=== PATIENT | female | born 1935 | race Caucasian/White ===

== ENCOUNTER 2020-12-27 10:19 | Inpatient (IN) ==
[2020-12-27] MEDS: Ondansetron ODT 4 MG TAB.RAPDIS SL PRN (19:39)
[2020-12-27] MEDS: Lactobacillus 1 EACH CAP.SPRINK PO SCH (19:39)
[2020-12-27] MEDS: Sennosides/Docusate Sodium TABLET PO SCH (19:40)
[2020-12-27] MEDS: *HR* OxyCODONE Immed Rel 5 MG TABLET PO PRN (19:40)
[2020-12-28 04:52] LABS: Basophils % 0.7 %; Eosinophils # 0.4 K/mcL (0.0-0.6); Hematocrit 31.1 % (35.3-44.9); Hemoglobin 9.8 g/dL (11.5-15.4); Immature Granulocytes % 0.4 % (0-4); Lymphocytes % 17.3 %; Mean Corpuscular HGB Conc 31.5 g/dL (31.6-35.5); Mean Corpuscular Hemoglobin 28.7 pg (28.0-33.3); Mean Corpuscular Volume 90.9 fL (83.0-100.0); Monocytes # 0.6 K/mcL (0.0-1.3); Monocytes % 11.5 %; Neutrophils # 3.4 K/mcL (1.6-8.9); Platelet Count 182 K/mcL (140-400); Red Blood Count 3.42 M/mcL (3.82-4.97); Segmented Neutrophils % 62.1 %; White Blood Count 5.5 K/mcL (4.3-11.1)
[2020-12-28 05:08] LABS: Alanine Aminotransferase 11 Units/L (7-52); Albumin 3.3 g/dL (3.5-5.7); Albumin/Globulin Ratio 1.5 (1.1-2.2); Alkaline Phosphatase 58 Units/L (34-104); Aspartate Amino Transferase 25 Units/L (13-39); BUN/Creatinine Ratio 24 (6-26); Bilirubin,Total 0.6 mg/dL (0.3-1.0); Blood Urea Nitrogen 18 mg/dL (8-23); Calcium 9.1 mg/dL (8.6-10.3); Carbon Dioxide 29 mEq/L (23-29); Chloride 105 mEq/L (98-107); Globulin 2.2 g/dL (2.4-3.5); Glucose 103 mg/dL (70-105); Osmolality,Calculated 288 (280-300); Potassium 4.2 mEq/L (3.5-5.1); Sodium 138 mEq/L (136-145); Total Protein 5.5 g/dL (6.4-8.9); eGFR For African Americans > 60 (> 60); eGFR For Non-African Americans > 60 (> 60)
[2020-12-28] MEDS: *HR* OxyCODONE Immed Rel 5 MG TABLET PO PRN ×3 (06:39→20:18)
[2020-12-28] MEDS: Sennosides/Docusate Sodium TABLET PO SCH ×2 (07:54→20:18)
[2020-12-28] MEDS: Cyanocobalamin (B-12) 1,000 MCG TABLET PO SCH (07:54)
[2020-12-28] MEDS: Valsartan 160 MG TABLET PO SCH (07:54)
[2020-12-28] MEDS: Vitamin E 200 UNIT (90MG) CAPSULE PO SCH (07:54)
[2020-12-28] MEDS: FLUoxetine 20 MG CAPSULE PO SCH (07:54)
[2020-12-28] MEDS: Cholecalciferol (D-3) 1,000 UNIT (25MCG) TABLET PO SCH (07:54)
[2020-12-28] MEDS: Multivit/Ca/Min/Fe/FA 1 TAB TABLET PO SCH (07:54)
[2020-12-28] MEDS: Lactobacillus 1 EACH CAP.SPRINK PO SCH ×2 (07:54→20:18)
[2020-12-28] MEDS: estradioL 0.5 MG TABLET PO SCH (18:23)
[2020-12-28] MEDS: *HR* Rivaroxaban 10 MG TABLET PO SCH (18:25)
[2020-12-28] MEDS: Ondansetron ODT 4 MG TAB.RAPDIS SL PRN (20:18)
[2020-12-29] MEDS: *HR* OxyCODONE Immed Rel 5 MG TABLET PO PRN ×2 (06:24→14:28)
[2020-12-29] MEDS: Sennosides/Docusate Sodium TABLET PO SCH ×2 (08:33→20:24)
[2020-12-29] MEDS: FLUoxetine 20 MG CAPSULE PO SCH (08:33)
[2020-12-29] MEDS: Vitamin E 200 UNIT (90MG) CAPSULE PO SCH (08:33)
[2020-12-29] MEDS: Multivit/Ca/Min/Fe/FA 1 TAB TABLET PO SCH (08:34)
[2020-12-29] MEDS: Valsartan 160 MG TABLET PO SCH (08:34)
[2020-12-29] MEDS: Cholecalciferol (D-3) 1,000 UNIT (25MCG) TABLET PO SCH (08:34)
[2020-12-29] MEDS: Lactobacillus 1 EACH CAP.SPRINK PO SCH ×2 (08:34→20:24)
[2020-12-29] MEDS: estradioL 0.5 MG TABLET PO SCH (08:34)
[2020-12-29] MEDS: Cyanocobalamin (B-12) 1,000 MCG TABLET PO SCH (08:34)
[2020-12-29] MEDS: *HR* Rivaroxaban 10 MG TABLET PO SCH (17:29)
[2020-12-29 21:03] LABS: Bilirubin,Urine Negative (Negative); Blood,Urine Moderate (Negative); Clarity,Urine Cloudy (Clear); Color,Urine Yellow (Yellow); Glucose,Urine (UA) Normal (Normal); Ketones,Urine Negative (Negative); Leukocyte Esterase,Urine Large (Negative); Nitrite,Urine Negative (Negative); PH,Urine 6.5 pH Units (5.0-8.0); Protein,Urine 100 mg/dL (Neg-Trace); Specific Gravity,Urine 1.025 (1.010-1.025); Urobilinogen,Urine Normal (Normal)
[2020-12-29 21:06] LABS: Bacteria,Urine Many per hpf (None-Few); RBC,Urine 0-3 per hpf (0-3); Squamous Epithelial Cell,Urine Few per hpf (None-Few); WBC,Urine 0-3 per hpf (0-3)
[2020-12-30] MEDS: Ondansetron ODT 4 MG TAB.RAPDIS SL PRN (01:11)
[2020-12-30] MEDS: Acetaminophen 325 MG TABLET PO PRN (08:20)
[2020-12-30] MEDS: Multivit/Ca/Min/Fe/FA 1 TAB TABLET PO SCH (08:40)
[2020-12-30] MEDS: Cyanocobalamin (B-12) 1,000 MCG TABLET PO SCH (08:40)
[2020-12-30] MEDS: Valsartan 160 MG TABLET PO SCH (08:40)
[2020-12-30] MEDS: Sennosides/Docusate Sodium TABLET PO SCH ×2 (08:40→20:47)
[2020-12-30] MEDS: Vitamin E 200 UNIT (90MG) CAPSULE PO SCH (08:40)
[2020-12-30] MEDS: Lactobacillus 1 EACH CAP.SPRINK PO SCH ×2 (08:40→20:47)
[2020-12-30] MEDS: Cholecalciferol (D-3) 1,000 UNIT (25MCG) TABLET PO SCH (08:40)
[2020-12-30] MEDS: FLUoxetine 20 MG CAPSULE PO SCH (08:40)
[2020-12-30] MEDS: estradioL 0.5 MG TABLET PO SCH (08:40)
[2020-12-30] MEDS: *HR* Rivaroxaban 10 MG TABLET PO SCH (17:57)
[2020-12-30] MEDS: *HR* OxyCODONE Immed Rel 5 MG TABLET PO PRN (20:47)
[2020-12-31] MEDS: *HR* OxyCODONE Immed Rel 5 MG TABLET PO PRN ×2 (03:19→23:33)
[2020-12-31] MEDS: Valsartan 160 MG TABLET PO SCH (09:08)
[2020-12-31] MEDS: Cholecalciferol (D-3) 1,000 UNIT (25MCG) TABLET PO SCH (09:08)
[2020-12-31] MEDS: Vitamin E 200 UNIT (90MG) CAPSULE PO SCH (09:08)
[2020-12-31] MEDS: Multivit/Ca/Min/Fe/FA 1 TAB TABLET PO SCH (09:08)
[2020-12-31] MEDS: estradioL 0.5 MG TABLET PO SCH (09:09)
[2020-12-31] MEDS: Cyanocobalamin (B-12) 1,000 MCG TABLET PO SCH (09:09)
[2020-12-31] MEDS: FLUoxetine 20 MG CAPSULE PO SCH (09:09)
[2020-12-31] MEDS: Sennosides/Docusate Sodium TABLET PO SCH ×2 (09:09→19:44)
[2020-12-31] MEDS: Lactobacillus 1 EACH CAP.SPRINK PO SCH ×2 (09:09→19:45)
[2020-12-31] MEDS: *HR* Rivaroxaban 10 MG TABLET PO SCH (16:15)
[2020-12-31] MEDS: Acetaminophen 325 MG TABLET PO PRN (22:41)
[2021-01-01] MEDS: Vitamin E 200 UNIT (90MG) CAPSULE PO SCH (09:27)
[2021-01-01] MEDS: Multivit/Ca/Min/Fe/FA 1 TAB TABLET PO SCH (09:27)
[2021-01-01] MEDS: Lactobacillus 1 EACH CAP.SPRINK PO SCH ×2 (09:27→19:36)
[2021-01-01] MEDS: Valsartan 160 MG TABLET PO SCH (09:27)
[2021-01-01] MEDS: Cholecalciferol (D-3) 1,000 UNIT (25MCG) TABLET PO SCH (11:54)
[2021-01-01] MEDS: Cyanocobalamin (B-12) 1,000 MCG TABLET PO SCH (11:54)
[2021-01-01] MEDS: FLUoxetine 20 MG CAPSULE PO SCH (11:54)
[2021-01-01] MEDS: estradioL 0.5 MG TABLET PO SCH (11:54)
[2021-01-01] MEDS: Sennosides/Docusate Sodium TABLET PO SCH ×2 (11:55→19:39)
[2021-01-01] MEDS: *HR* Rivaroxaban 10 MG TABLET PO SCH (17:49)
[2021-01-01] MEDS: Nitrofurantoin (BID) 100 MG CAPSULE PO SCH (17:49)
[2021-01-01] MEDS: Melatonin 3 MG TABLET PO PRN (19:51)
[2021-01-01] MEDS: *HR* OxyCODONE Immed Rel 5 MG TABLET PO PRN (23:08)
[2021-01-02] MEDS: Acetaminophen 325 MG TABLET PO PRN (09:46)
[2021-01-02] MEDS: Nitrofurantoin (BID) 100 MG CAPSULE PO SCH ×2 (09:47→17:25)
[2021-01-02] MEDS: Multivit/Ca/Min/Fe/FA 1 TAB TABLET PO SCH (09:47)
[2021-01-02] MEDS: Valsartan 160 MG TABLET PO SCH (09:47)
[2021-01-02] MEDS: Sennosides/Docusate Sodium TABLET PO SCH ×2 (09:47→19:55)
[2021-01-02] MEDS: Ascorbic Acid 500 MG TABLET PO SCH (09:47)
[2021-01-02] MEDS: FLUoxetine 20 MG CAPSULE PO SCH (09:47)
[2021-01-02] MEDS: Cholecalciferol (D-3) 1,000 UNIT (25MCG) TABLET PO SCH (09:47)
[2021-01-02] MEDS: estradioL 0.5 MG TABLET PO SCH (09:47)
[2021-01-02] MEDS: Lactobacillus 1 EACH CAP.SPRINK PO SCH ×2 (09:47→19:58)
[2021-01-02] MEDS: Cyanocobalamin (B-12) 1,000 MCG TABLET PO SCH (09:47)
[2021-01-02] MEDS: Vitamin E 200 UNIT (90MG) CAPSULE PO SCH (09:47)
[2021-01-02] MEDS: *HR* Rivaroxaban 10 MG TABLET PO SCH (17:25)
[2021-01-02] MEDS: *HR* OxyCODONE Immed Rel 5 MG TABLET PO PRN (20:13)
[2021-01-03] MEDS: Sennosides/Docusate Sodium TABLET PO SCH ×2 (08:47→19:46)
[2021-01-03] MEDS: Ascorbic Acid 500 MG TABLET PO SCH (08:47)
[2021-01-03] MEDS: Vitamin E 200 UNIT (90MG) CAPSULE PO SCH (08:47)
[2021-01-03] MEDS: Valsartan 160 MG TABLET PO SCH (08:47)
[2021-01-03] MEDS: estradioL 0.5 MG TABLET PO SCH (08:47)
[2021-01-03] MEDS: FLUoxetine 20 MG CAPSULE PO SCH (08:47)
[2021-01-03] MEDS: Nitrofurantoin (BID) 100 MG CAPSULE PO SCH (08:47)
[2021-01-03] MEDS: Multivit/Ca/Min/Fe/FA 1 TAB TABLET PO SCH (08:48)
[2021-01-03] MEDS: Cyanocobalamin (B-12) 1,000 MCG TABLET PO SCH (08:48)
[2021-01-03] MEDS: Lactobacillus 1 EACH CAP.SPRINK PO SCH ×2 (08:48→19:43)
[2021-01-03] MEDS: Cholecalciferol (D-3) 1,000 UNIT (25MCG) TABLET PO SCH (08:48)
[2021-01-03] MEDS: Acetaminophen 325 MG TABLET PO PRN (08:48)
[2021-01-03] MEDS: *HR* Rivaroxaban 10 MG TABLET PO SCH (16:37)
[2021-01-03] MEDS: levoFLOXacin 500 MG TABLET PO SCH (16:39)
[2021-01-03] MEDS: *HR* OxyCODONE Immed Rel 5 MG TABLET PO PRN (22:53)
[2021-01-04] MEDS: Ascorbic Acid 500 MG TABLET PO SCH (09:02)
[2021-01-04] MEDS: Lactobacillus 1 EACH CAP.SPRINK PO SCH ×2 (09:02→20:17)
[2021-01-04] MEDS: Sennosides/Docusate Sodium TABLET PO SCH ×2 (09:02→20:18)
[2021-01-04] MEDS: FLUoxetine 20 MG CAPSULE PO SCH (09:02)
[2021-01-04] MEDS: Multivit/Ca/Min/Fe/FA 1 TAB TABLET PO SCH (09:03)
[2021-01-04] MEDS: estradioL 0.5 MG TABLET PO SCH (09:03)
[2021-01-04] MEDS: Valsartan 160 MG TABLET PO SCH (09:03)
[2021-01-04] MEDS: Vitamin E 200 UNIT (90MG) CAPSULE PO SCH (09:03)
[2021-01-04] MEDS: Cholecalciferol (D-3) 1,000 UNIT (25MCG) TABLET PO SCH (09:03)
[2021-01-04] MEDS: Cyanocobalamin (B-12) 1,000 MCG TABLET PO SCH (09:03)
[2021-01-04] MEDS: levoFLOXacin 500 MG TABLET PO SCH (09:03)
[2021-01-04] MEDS ORDERED: 0.9 % Sodium Chloride 500 ML IVC ONE (10:22)
[2021-01-04] MEDS ORDERED: 0.9 % Sodium Chloride 1,000 ML IVC SCH (10:30)
[2021-01-04] MEDS: *HR* Rivaroxaban 10 MG TABLET PO SCH (16:32)
[2021-01-04] MEDS: Melatonin 3 MG TABLET PO PRN (20:19)
[2021-01-04] MEDS: *HR* OxyCODONE Immed Rel 5 MG TABLET PO PRN (20:19)
[2021-01-05] MEDS: estradioL 0.5 MG TABLET PO SCH (08:09)
[2021-01-05] MEDS: Acetaminophen 325 MG TABLET PO PRN (08:09)
[2021-01-05] MEDS: Sennosides/Docusate Sodium TABLET PO SCH ×2 (08:09→21:40)
[2021-01-05] MEDS: Cholecalciferol (D-3) 1,000 UNIT (25MCG) TABLET PO SCH (08:09)
[2021-01-05] MEDS: levoFLOXacin 500 MG TABLET PO SCH (08:09)
[2021-01-05] MEDS: Ascorbic Acid 500 MG TABLET PO SCH (08:09)
[2021-01-05] MEDS: Multivit/Ca/Min/Fe/FA 1 TAB TABLET PO SCH (08:09)
[2021-01-05] MEDS: Cyanocobalamin (B-12) 1,000 MCG TABLET PO SCH (08:09)
[2021-01-05] MEDS: Lactobacillus 1 EACH CAP.SPRINK PO SCH ×2 (08:09→21:40)
[2021-01-05] MEDS: FLUoxetine 20 MG CAPSULE PO SCH (08:09)
[2021-01-05] MEDS: Valsartan 160 MG TABLET PO SCH (08:09)
[2021-01-05] MEDS: Vitamin E 200 UNIT (90MG) CAPSULE PO SCH (08:09)
[2021-01-05] MEDS: *HR* Rivaroxaban 10 MG TABLET PO SCH (19:07)
[2021-01-05] MEDS: Melatonin 3 MG TABLET PO PRN (21:41)
[2021-01-05] MEDS: *HR* OxyCODONE Immed Rel 5 MG TABLET PO PRN (21:41)
[2021-01-06 07:07] VITALS: BP 156/90; PULSE 67; RESP 16; TEMP 98.6; O2SAT 96
[2021-01-06] MEDS: Acetaminophen 325 MG TABLET PO PRN (08:14)
[2021-01-06] MEDS: levoFLOXacin 500 MG TABLET PO SCH (08:16)
[2021-01-06] MEDS: FLUoxetine 20 MG CAPSULE PO SCH (08:16)
[2021-01-06] MEDS: Valsartan 160 MG TABLET PO SCH (08:16)
[2021-01-06] MEDS: estradioL 0.5 MG TABLET PO SCH (08:16)
[2021-01-06 10:03] LABS: Basophils # 0.1 K/mcL (0.0-0.2); Basophils % 0.8 %; Eosinophils # 0.4 K/mcL (0.0-0.6); Eosinophils % 4.9 %; Hematocrit 35.6 % (35.3-44.9); Hemoglobin 10.8 g/dL (11.5-15.4); Immature Granulocytes % 0.4 % (0-4); Lymphocytes % 12.3 %; Mean Corpuscular HGB Conc 30.3 g/dL (31.6-35.5); Mean Corpuscular Hemoglobin 28.6 pg (28.0-33.3); Mean Corpuscular Volume 94.2 fL (83.0-100.0); Mean Platelet Volume 9.7 fL (9.4-12.4); Monocytes # 0.6 K/mcL (0.0-1.3); Monocytes % 7.9 %; Neutrophils # 5.9 K/mcL (1.6-8.9); Platelet Count 341 K/mcL (140-400); Red Blood Count 3.78 M/mcL (3.82-4.97); Red Cell Distribution Width 15.9 % (11.5-14.5); Segmented Neutrophils % 73.7 %
[2021-01-06 10:15] LABS: BUN/Creatinine Ratio 25 (6-26); Blood Urea Nitrogen 22 mg/dL (8-23); Calcium 9.1 mg/dL (8.6-10.3); Carbon Dioxide 27 mEq/L (23-29); Chloride 105 mEq/L (98-107); Glucose 94 mg/dL (70-105); Osmolality,Calculated 287 (280-300); Potassium 4.2 mEq/L (3.5-5.1); Sodium 137 mEq/L (136-145); eGFR For African Americans > 60 (> 60); eGFR For Non-African Americans > 60 (> 60)
== END 2021-01-06 12:01 | disposition home health service (06) | DRG 560 ==
LOC: INPGRE 15:24
PROVIDERS: ADMIT Family Medicine; ATTEND Family Medicine